=== PATIENT | female | born 1995 | race Native Hawaiian/Other Pacific Islander ===

== ENCOUNTER 2019-04-02 07:07 | Inpatient (IN) | payer OTHER ==
[2019-04-02] MEDS ORDERED: OXYTOCIN 10 UNIT/ML 1 ML VIAL IM PRN (08:15)
[2019-04-02] MEDS ORDERED: CARBOPROST TROMETHAMINE 250 MCG/ML 1 ML AMP IM PRN (08:15)
[2019-04-02] MEDS ORDERED: LIDOCAINE 0.5% (PF) 5 MG/ML (50 ML SDV) SQ PRN (08:15)
[2019-04-02] MEDS ORDERED: TERBUTALINE 1 MG/ML VIAL SQ PRN (08:15)
[2019-04-02] MEDS ORDERED: METHYLERGONOVINE 0.2 MG/ML 1 ML AMP IM PRN (08:15)
[2019-04-02] MEDS ORDERED: OXYTOCIN 30 UNITS/500 ML NS 30 UNIT in SALINE 1 500ML.BAG IV SCH (08:15)
[2019-04-02] MEDS: LACTATED RINGERS 1,000 ML IV SCH ×2 (08:44→10:00)
--- NOTE | 2019-04-02 09:13 | P.HPOB ---
History of Present Illness H&P Date: 04/02/19 Chief Complaint: My water broke this morning. This is a 23-year-old white female 1 para 0 EDC 04/08/2019 at 39 and one sevenths weeks' gestation. Patient states her water broke this morning, clear fluid, at approximate 6:30 AM. She is having mild to moderate uterine contractions at this time. She denies vaginal bleeding. Fetus is been active throughout the . Past medical history is negative. Past surgical history is negative. Current medications vitamins daily. ALLERGIES include penicillin, reaction unknown. Family history is essentially negative. Social history patient has never been a smoker, she is now , father of the baby is present and involved. She denies alcohol or drug use. history is significant for blood type B+, rubella status nonimmune. Urine culture, VDRL testing, HIV testing, hepatitis B surface antigen, gonorrhea and chlamydia cultures, group B strep cultures all negative. One-hour Glucola elevated, 3 hour GTT within normal limits. On exam this is a pleasant white female, she is approximately 280 pounds, 5 foot 3 inches, vital signs are stable and she is afebrile. The general physical exam is within normal limits. Extremities reveal +1 edema. Cervix is 4 cm dilated, 90% effaced, -2 station, vertex presentation, obvious clear fluid on the perineal body. heart rate is consistent with reactive NST. Impression: 39 and one sevenths weeks intrauterine , spontaneous a mniorrhexis, early labor. All signs reassuring. Plan: Epidural may be placed at any time. Continue close maternal and surveillance. Consider oxytocin augmentation pending clinical progress. Anticipate normal spontaneous vaginal delivery. Review of Systems Constitutional: Reports as per HPI Past Medical History Past Medical History: No Reported History History of Any Multi-Drug Resistant Organisms: None Reported Past Surgical History: No Surgical Hx Reported Smoking Status: Never smoker Medications and Allergies Home Medications Medication Instructions Recorded Confirmed Type Thyroid,Pork [[place] Thyroid] 60 mg PO BID 04/02/19 04/02/19 History Allergies Allergy/AdvReac Type Severity Reaction Status Date / Time Penicillins Allergy Unknown Verified 04/02/19 07:36 Childhood Exam Vital Signs Temp Pulse Resp BP 04/02/19 07:18 97.9 F 100 16 157/70 Intake and Output 04/01/19 04/02/1904/02/19 22:59 06:59 14:59 Other: Weight 2783 kg Assessment and Plan Assessment: 39 and one sevenths week intrauterine , spontaneous amniorrhexis, early labor. Plan: Close maternal and surveillance. Consider oxytocin augmentation after epidural was placed pending clinical progress. Anticipate normal spontaneous vaginal delivery. Time with Patient: Less than 30
[2019-04-02 09:33] LABS: Anisocytosis Slight; Basophils % (A) 0 %; Eosinophils % (A) 0 %; HCT 40.1 % (34.0-46.0); HGB 13.1 gm/dL (11.4-16.0); Lymphocytes # (A) 2.5 k/uL (1.0-4.8); Lymphocytes % (A) 16 %; MCH 28.3 pg (25.0-35.0); MCHC 32.6 g/dL (31.0-37.0); MCV 86.7 fL (80.0-100.0); Mean Platelet Volume 9.1; Monocytes # (A) 0.7 k/uL (0-1.0); Monocytes % (A) 4 %; Neutrophils # (A) 12.2 k/uL (1.3-7.7); Neutrophils % (A) 78 %; Platelet Count 246 k/uL (150-450); RBC 4.62 m/uL (3.80-5.40); RDW 16.4 % (11.5-15.5); WBC 15.7 k/uL (3.8-10.6)
[2019-04-02] MEDS ORDERED: SODIUM CHLORIDE 0.9% 100 ML BAG ONE (09:45)
[2019-04-02] MEDS ORDERED: fentaNYL (PF) 50 MCG/ML 5 ML AMP ONE (09:45)
[2019-04-02] MEDS ORDERED: ROPIVACAINE 5MG/ML 20ML VIAL ONE (09:45)
[2019-04-02] MEDS: OXYTOCIN 20 UNITS/1000 ML NS 1,000 ML IV SCH ×2 (12:58→14:26)
[2019-04-02] MEDS ORDERED: WITCH HAZEL 1 EACH MED..PAD TOPICAL PRN (13:23)
[2019-04-02] MEDS ORDERED: ZOLPIDEM 5 MG TAB PO PRN (13:23)
[2019-04-02] MEDS ORDERED: diphenhydrAMINE 50 MG CAP PO PRN (13:23)
[2019-04-02] MEDS ORDERED: BENZOCAINE/MENTHOL SPRAY 1 GM/SPRAY AEROSOL TOPICAL PRN (13:23)
[2019-04-02] MEDS ORDERED: diphenhydrAMINE 25 MG CAP PO PRN (13:23)
[2019-04-02] MEDS ORDERED: HYDROCORTISONE 2.5% RECTAL CREAM 30 GM TUBE RECTAL PRN (13:23)
[2019-04-02] MEDS ORDERED: diphenhydrAMINE ELIXIR 25 MG/10 ML CUP PO PRN (13:23)
[2019-04-02] MEDS ORDERED: LANOLIN CREAM 5 GM TUBE TOPICAL PRN (13:23)
[2019-04-02] MEDS ORDERED: diphenhydrAMINE 50 MG/ML 1 ML VIAL IVP PRN ×2 (13:23)
[2019-04-02] MEDS ORDERED: SIMETHICONE 80 MG CHEWABLE PO PRN (13:23)
[2019-04-02] MEDS ORDERED: MEASLES-MUMPS-RUBELLA VACC/PF 12,500 UNIT/0.5 ML VIAL SQ ONE (13:23)
--- NOTE | 2019-04-02 13:23 | P.PROBDLV ---
Vaginal Delivery Note - . Vaginal Delivery Note: This 23-year-old female 1 para 0 EDC 04/08/2019 at 39-5/7 weeks presented with spontaneous amniorrhexis which occurred at home, clear fluid, at approximately 06 100. Mild uterine contractions followed. was essentially unremarkable, blood type B+, rubella status nonimmune, group B strep cultures negative. Please see my dictated history and physical for details. Patient progressed well through the course of labor and received an epidural per her request. Oxytocin augmentation was started. She became completely dilated at 1241 hrs. and began the second stage of labor at that time. With excellent maternal expulsive efforts the patient easily crowned the . Perineal body was prepped and draped in usual sterile fashion. delivered occiput anterior and restituted accordingly. There was a tight nuchal cord 1 that was not able to be reduced. Patient delivered through the nuchal cord, a liveborn male infant at 1255 hrs. Shoulders delivered without issue. Umbilical cord was doubly clamped and ligated, he was handed to waiting nurses for evaluation where scores of 8 and 9 at one and 5 minutes respectively were given. The placenta delivered spontaneously, it was inspected and noted to be intact with trivascular cord at 1258 hrs. Inspection now of the cervix, vagina, perineum, periurethral, and perirectal areas revealed a second-degree laceration in the midline. This was injected with lidocaine and repaired in the usual fashion using 2-0 undyed Vicryl. Excellent reapproximation was noted. There was also a small right labial laceration that was also repaired in a running locking stitch. Fundus is firm and in the midline, symmetric and 18 week size upon completion of delivery. Infant weighs 7 lbs. 9 oz. or 3415 g. All sponge needle and enhancement counts are correct at the end of the procedure. Total estimated blood loss 300 mL's. Placenta is not sent to pathology, for an unremarkable . Nallely arango will be given. Patient is requesting circumcision for her infant son. Orders are written, and this will likely occur tomorrow morning.
[2019-04-02] MEDS: IBUPROFEN 600 MG TAB PO PRN ×2 (13:32→21:05)
[2019-04-02] MEDS: SENNOSIDES-DOCUSATE SODIUM 1 EACH TAB PO SCH (21:05)
[2019-04-03] MEDS: IBUPROFEN 600 MG TAB PO PRN ×4 (04:11→22:59)
--- NOTE | 2019-04-03 08:20 | P.DS ---
Providers Date of admission: 04/02/19 07:29 Expected date of discharge: 04/03/19 Attending physician: Melina Gonzales Primary care physician: Stated None Hospital Course: This is a 23-year-old white female 1 para 0 EDC 04/08/2019 at 39 and one sevenths weeks' gestation. Patient presented with spontaneous amniorrhexis which occurred at home, clear fluid. was essentially unremarkable, blood type B positive, rubella status nonimmune, group strep cultures negative. Please see my dictated history and physical for details. Patient was admitted, epidural was placed per her request. Oxytocin augmentation she was given. She went on to vaginally deliver a liveborn male infant with scores of 8 and 9 at one and 5 minutes respectively. There was a tight nuchal cord 1 that was reduced on the perineal body, an estimated blood loss of 300 mL and a small second-degree perineal laceration easily repaired. Infant weighed 7 lbs. 9 oz. or 3415 g. Please see my dictated delivery note for details. This morning the patient is doing well. She is voiding, ambulating and passing flatus without difficulty. Vital signs are stable and she is afebrile. Circumcision has been performed on her son. patient is breast-feeding and this appears to be going well. She is judged to be in very good condition for discharge home. Patient will follow-up with me in the office in 6 weeks. I have reminded her no intercourse, tampons or douching. She will use [id number] ibuprofen, or Advil or Aleve as instructed by the bottle for pain relief. She will continue taking her vitamin daily. I've asked her to call with any fevers shakes or chills, foul smelling or copious lochia, with the passage of large blood clots, with any pain not alleviated by [id number] products, or indeed with any concerns. We have briefly reviewed options for contraception and we will discuss this further in the office. will follow-up with chronic condition nurse as recommended. Breast pump is provided to the patient per her request. Patient Condition at Discharge: Good Plan - Discharge Summary Discharge Rx Participant: No New Discharge Prescriptions: No Action Thyroid,Pork [[place] Thyroid] 60 mg PO BID Discharge Medication List Thyroid,Pork [[place] Thyroid] 60 mg PO BID 04/02/19 [History] Follow up Appointment(s)/Referral(s): Melina Gonzales MD [STAFF PHYSICIAN] - 6 Weeks Discharge Disposition: HOME SELF-CARE
[2019-04-03] MEDS: SENNOSIDES-DOCUSATE SODIUM 1 EACH TAB PO SCH ×2 (11:16→20:07)
[2019-04-03] MEDS: ACETAMINOPHEN TAB 325 MG TAB PO PRN (20:08)
[2019-04-04] MEDS: ACETAMINOPHEN TAB 325 MG TAB PO PRN (03:13)
[2019-04-04] MEDS: IBUPROFEN 600 MG TAB PO PRN (07:37)
[2019-04-04] MEDS: SENNOSIDES-DOCUSATE SODIUM 1 EACH TAB PO SCH (07:38)
[2019-04-04 08:02] VITALS: BP 124/73; PULSE 98; RESP 16; TEMP 98.4
== END 2019-04-04 10:35 | disposition home or self-care (01) | DRG 807 ==
LOC: FBPOP 07:07 → 4FBP 07:29
PROVIDERS: ADMIT Obstetrics & Gynecology; ATTEND Obstetrics & Gynecology
PROC: 10E0XZZ Delivery of Products of Conception, External Approach (ICD-10-PCS; principal; 2019-04-02)
PROC: 0KQM0ZZ Repair Perineum Muscle, Open Approach (ICD-10-PCS; 2019-04-02)
PROC: 0HQ9XZZ Repair Perineum Skin, External Approach (ICD-10-PCS; 2019-04-02)
PROC: 00HU33Z Insertion of Infusion Device into Spinal Canal, Percutaneous Approach (ICD-10-PCS; 2019-04-02)
PROC: 3E0R3BZ Introduction of Anesthetic Agent into Spinal Canal, Percutaneous Approach (ICD-10-PCS; 2019-04-02)
DX: O69.1XX0 Labor and delivery complicated by cord around neck, with compression, not applicable or unspecified (principal); Z37.0 Single live birth; O70.1 Second degree perineal laceration during delivery; O70.0 First degree perineal laceration during delivery; O99.62 Diseases of the digestive system complicating childbirth; K21.9 Gastro-esophageal reflux disease without esophagitis; O99.284 Endocrine, nutritional and metabolic diseases complicating childbirth; E07.9 Disorder of thyroid, unspecified; Z3A.39 39 weeks gestation of pregnancy; Z79.899 Other long term (current) drug therapy
CPT/HCPCS: 59025; 84112; 85025; 86850; 86900; 86901; 90707; 99213

== ENCOUNTER 2020-01-28 01:49 | Emergency (ER) | payer OTHER ==
[2020-01-28 02:06] VITALS: BP 158/103; PULSE 89; RESP 18; TEMP 98.1
[2020-01-28] MEDS ORDERED: ALPRAZolam 0.5 MG TAB PO STA (02:07)
--- NOTE | 2020-01-28 02:25 | ED ---
General Adult HPI - General Chief complaint: Anxiety Stated complaint: Tingling sensation left side Time Seen by Provider: 01/28/20 02:07 Source: patient Mode of arrival: ambulatory Limitations: no limitations - History of Present Illness Initial comments: Dictation was produced using [employer] dictation software. please excuse any grammatical, word or spelling errors. Chief Complaint: 24-year-old female presents with anxiety. History of Present Illness: 24-year-old female she presents with racing thoughts, rapid breathing, intermittent tingling to the hands and fingers. States that she didn't really stressed out recently because he tried to find a new job. She states that she is preoccupied with all of her tests at home. She also worried about her fianc who was went to [facility]. Today she felt like she became really anxious. She and breathing fast to the point were she experience some tingling to her left medial arm. She states that it arises in her left elbow and radiates to her left fifth and fourth digit. She works at [employer]. She presents that she uses her upper extremities a lot. The ROS documented in this emergency department record has been reviewed and confirmed by me. Those systems with pertinent positive or negative responses have been documented in the HPI. All other systems are other negative and/or noncontributory. PHYSICAL EXAM: General Impression: Alert and oriented x3, not in acute distress HEENT: Normocephalic atraumatic, extra-ocular movements intact, pupils equal and reactive to light bilaterally, mucous membranes moist. Cardiovascular: Heart regular rate and rhythm, S1&S2 audible, no murmurs, rubs or gallops Chest: Lungs clear to auscultation bilaterally, no rhonchi, no wheeze, no rales Abdomen: Bowel sounds present, abdomen soft, non-tender, non-distended, no organomegaly Musculoskeletal: Pulses present and equal in all extremities, no peripheral edema Motor: no focal deficits noted Neurological: CN II-XII grossly intact, no focal motor or sensory deficits noted Skin: Intact with no visualized rashes Psych: Normal affect and mood ED course: 24-year-old female click or presentation consistent with anxiety reaction. Signs upon arrival are within acceptable limits. Patient denies being . Her last menstrual period was 9 days ago. Physical exam is benign. Patient given an anxiolytic. She is given referral to outpatient physician Dr. Allen who can manage her anxiety on outpatient basis. Patient is set up an agreeable plan. Reassurance provided. - Related Data Home Medications Medication Instructions Recorded Confirmed Thyroid,Pork [[place] Thyroid] 60 mg PO BID 04/02/19 04/02/19 Allergies Allergy/AdvReac Type Severity Reaction Status Date / Time Penicillins Allergy Unknown Verified 01/28/20 02:06 Childhood Review of Systems ROS Statement: Those systems with pertinent positive or pertinent negative responses have been documented in the HPI. ROS Other: All systems not noted in ROS Statement are negative. Past Medical History Past Medical History: No Reported History History of Any Multi-Drug Resistant Organisms: None Reported Past Surgical History: No Surgical Hx Reported Past Psychological History: No Psychological Hx Reported Smoking Status: Never smoker Past Alcohol Use History: Occasional Past Drug Use History: Marijuana General Exam Limitations: no limitations Course Vital Signs 01/28/20 02:00 Temperature 98.1 F Pulse Rate 89 Respiratory 18 Rate Blood Pressure 158/103 O2 Sat by Pulse 98 Oximetry Disposition Clinical Impression: Acute anxiety Disposition: HOME SELF-CARE Instructions (If sedation given, give patient instructions): Generalized Anxiety Disorder (ED) Is patient prescribed a controlled substance at d/c from ED?: No Referrals: Yvon Allen MD [REFERRING] - 1-2 days Time of Disposition: 02:25
== END 2020-01-28 02:36 | disposition home or self-care (01) ==
LOC: EC 01:49
DX: F41.9 Anxiety disorder, unspecified (principal); Z88.0 Allergy status to penicillin
CPT/HCPCS: 99283

== ENCOUNTER 2020-12-27 19:23 | Emergency (ER) | payer OTHER ==
[2020-12-27] MEDS ORDERED: KETOROLAC 15 MG/ML 1 ML VIAL IM STA (20:07)
[2020-12-27] MEDS ORDERED: SODIUM CHLORIDE 0.9% 1,000 ML IV STA (20:07)
[2020-12-27] MEDS ORDERED: LORazepam 1 MG TAB PO STA (20:07)
[2020-12-27 20:34] LABS: Basophils % (A) 0 %; Eosinophils % (A) 0 %; HCT 44.2 % (34.0-46.0); HGB 14.5 gm/dL (11.4-16.0); Lymphocytes # (A) 2.7 k/uL (1.0-4.8); Lymphocytes % (A) 23 %; MCH 28.3 pg (25.0-35.0); MCHC 32.7 g/dL (31.0-37.0); MCV 86.5 fL (80.0-100.0); Mean Platelet Volume 7.2; Monocytes # (A) 0.6 k/uL (0-1.0); Monocytes % (A) 5 %; Neutrophils # (A) 7.9 k/uL (1.3-7.7); Neutrophils % (A) 69 %; Platelet Count 356 k/uL (150-450); RBC 5.11 m/uL (3.80-5.40); RDW 13.4 % (11.5-15.5); WBC 11.5 k/uL (3.8-10.6)
[2020-12-27 20:38] LABS: ALT 19 U/L (4-34); AST 21 U/L (14-36); African American GFR (CKD) >90 (>60 ml/min/1.73 sqM); Albumin 4.4 g/dL (3.5-5.0); Alkaline Phosphatase 71 U/L (38-126); Anion Gap 9 mmol/L; Blood Urea Nitrogen 12 mg/dL (7-17); Calcium 10.2 mg/dL (8.4-10.2); Carbon Dioxide 25 mmol/L (22-30); Chloride 105 mmol/L (98-107); Glucose 147 mg/dL (74-99); Magnesium 2.1 mg/dL (1.6-2.3); Non-African American GFR(CKD) >90 (>60 ml/min/1.73 sqM); Sodium 139 mmol/L (137-145); Total Bilirubin 0.3 mg/dL (0.2-1.3); Total Protein 7.7 g/dL (6.3-8.2)
[2020-12-27 20:45] LABS: INR 0.9 (<1.2); Partial Thromboplastin Time 21.2 sec (22.0-30.0); Prothrombin Time 9.7 sec (9.0-12.0)
--- NOTE | 2020-12-27 20:47 | XR ---
EXAMINATION TYPE: XR chest 2V DATE OF EXAM: 12/27/2020 COMPARISON: 10/13/2013. HISTORY: Chest pain. TECHNIQUE: Frontal and lateral views of the chest are obtained. FINDINGS: There is no focal air space opacity, pleural effusion, or pneumothorax seen. The cardiac silhouette size is within normal limits. The osseous structures are intact. IMPRESSION: No acute cardiopulmonary process.
--- NOTE | 2020-12-27 21:06 | ED ---
General Adult HPI - General Source: patient Mode of arrival: ambulatory Limitations: no limitations <Barbara Sol - Last Filed: 12/28/20 01:10> <Tammie Cabrera - Last Filed: 12/28/20 14:49> - General Chief complaint: Chest Pain Stated complaint: chest pain Time Seen by Provider: 12/27/20 19:59 - History of Present Illness Initial comments: 25 year-old female patient presents to the emergency department for evaluation of Chest pain, jaw pain, and left arm pain. Denies shortness of breath, nausea, or sweats. States pain initially started when she picked up something heavy. Denies any fever, chills, or cough. States she does have history of anxiety and panic attacks. Denies feeling anxious or having an inciting event cause her symptoms. She denies abdominal pain, constipation, or diarrhea. Patient denies any recent rash, back pain, numbness, tingling, dizziness, weakness, hematuria, dysuria, urinary urgency, urinary frequency, headache, visual changes, or any other complaints. Denies chance of . (Barbara Sol) - Related Data Home Medications Medication Instructions Recorded Confirmed Thyroid,Pork [[place] Thyroid] 60 mg PO BID 04/02/19 04/02/19 Allergies Allergy/AdvReac Type Severity Reaction Status Date / Time Penicillins Allergy Unknown Verified 01/28/20 02:06 Childhood Review of Systems ROS Other: All systems not noted in ROS Statement are negative. <Barbara Sol - Last Filed: 12/28/20 01:10> ROS Other: All systems not noted in ROS Statement are negative. <Tammie Cabrera - Last Filed: 12/28/20 14:49> ROS Statement: Those systems with pertinent positive or pertinent negative responses have been documented in the HPI. Past Medical History Past Medical History: No Reported History History of Any Multi-Drug Resistant Organisms: None Reported Past Surgical History: No Surgical Hx Reported Past Psychological History: No Psychological Hx Reported Smoking Status: Never smoker Past Alcohol Use History: Occasional Past Drug Use History: Marijuana <Barbara Sol - Last Filed: 12/28/20 01:10> General Exam Limitations: no limitations General appearance: alert, in no apparent distress, other (This is a well- developed, well-nourished adult female patient in no acute distress. Vital signs upon presentation are temperature 98.2F, pulse 80, respirations 18, blood pressure 177/109, pulse ox 99% on room air.) Eye exam: Present: normal appearance, PERRL, EOMI. Absent: scleral icterus, conjunctival injection, periorbital swelling ENT exam: Present: normal exam, normal oropharynx, mucous membranes moist Respiratory exam: Present: normal lung sounds bilaterally. Absent: respiratory distress, wheezes, rales, rhonchi, stridor, chest wall tenderness Cardiovascular Exam: Present: regular rate, normal rhythm, normal heart sounds. Absent: systolic murmur, diastolic murmur, rubs, gallop, clicks GI/Abdominal exam: Present: soft, normal bowel sounds. Absent: distended, tenderness, guarding, rebound, rigid Neurological exam: Present: alert, oriented X3, CN II-XII intact Psychiatric exam: Present: normal affect, normal mood Skin exam: Present: warm, dry, intact, normal color. Absent: rash <Barbara Sol - Last Filed: 12/28/20 01:10> Course Vital Signs 12/27/20 12/27/20 12/27/20 19:26 19:59 21:29 Temperature 98.2 F 97 F L Pulse Rate 80 76 Respiratory 18 22 18 Rate Blood Pressure 177/109 126/76 O2 Sat by Pulse 99 98 Oximetry EKG Findings - EKG Comments: EKG Findings:: EKG obtained at 1943 shows sinus rhythm with frequent PVCs. Ventricular rate 76, [place] interval 176, QRS duration 76, QT 384, QTC 432. No evidence of ST elevation or depression. <Barbara Sol - Last Filed: 12/28/20 01:10> Medical Decision Making - Lab Data Result diagrams: 12/27/20 20:15 12/27/20 20:15 - Radiology Data Radiology results: report reviewed, image reviewed <Barbara Sol - Last Filed: 12/28/20 01:10> - Lab Data Result diagrams: 12/27/20 20:15 12/27/20 20:15 <Tammie Cabrera - Last Filed: 12/28/20 14:49> - Medical Decision Making 25 year-old female patient presents to the emergency department today for evalua tion of chest pain, left jaw pain, and left arm pain. Physical examination was unremarkable. Pain was not reproducible palpation. Lungs are clear to auscultation with good air movement. Abdomen soft and nontender. EKG was obtained and showed sinus rhythm with frequent premature ventricular cont ractions. Labs reviewed and did reveal elevated glucose, mildly elevated white blood cell count at 11.5. Chest x-ray was obtained and was negative. Upon reevaluation patient does report improvement of symptoms. States that she feels this may have been a panic attack. We did discuss the findings of the PVCs on her EKG, she is instructed to follow-up with her primary care physician or cardiology for further evaluation. She is instructed to discuss Holter monitoring. Return parameters were discussed in detail. She verbalizes understanding and agrees with this plan. Case discussed with my attending Dr. Cabrera. (Barbara Sol) I was available for consultation in the emergency department. The history and physical exam were done by the midlevel provider. I was consulted for this patients care. I reviewed the case with the midlevel provider and based on thei r presentation of the patient, I agree with the assessment, medical decision making and plan of care as documented. Chart was dictated using [employer] dictation software. Attempts were made to correct any dictation errors however some typographical errors may persist. Patient was seen during a national state of emergency due to the Covid-19 pandemic. (Tammie Cabrera) - Lab Data Lab Results 12/27/20 12/27/20 12/27/20 Range/Units 20:15 20:15 20:15 WBC 11.5 H (3.8-10.6) k/uL RBC 5.11 (3.80-5.40) m/uL Hgb 14.5 (11.4-16.0) gm/dL Hct 44.2 (34.0-46.0) % MCV 86.5 (80.0-100.0) fL MCH 28.3 (25.0-35.0) pg MCHC 32.7 (31.0-37.0) g/dL RDW 13.4 (11.5-15.5) % Plt Count 356 (150-450) k/uL MPV 7.2 Neutrophils % 69 % Lymphocytes % 23 % Monocytes % 5 % Eosinophils % 0 % Basophils % 0 % Neutrophils # 7.9 H (1.3-7.7) k/uL Lymphocytes # 2.7 (1.0-4.8) k/uL Monocytes # 0.6 (0-1.0) k/uL Eosinophils # 0.0 (0-0.7) k/uL Basophils # 0.0 (0-0.2) k/uL PT 9.7 (9.0-12.0) sec INR 0.9 (<1.2) APTT 21.2 L (22.0-30.0) sec Sodium 139 (137-145) mmol/L Potassium 4.0 (3.5-5.1) mmol/L Chloride 105 (98-107) mmol/L Carbon Dioxide 25 (22-30) mmol/L Anion Gap 9 mmol/L BUN 12 (7-17) mg/dL Creatinine 0.72 (0.52-1.04) mg/dL Est GFR (CKD-EPI)AfAm >90 (>60 ml/min/1.73 sqM) Est GFR (CKD-EPI)NonAf >90 (>60 ml/min/1.73 sqM) Glucose 147 H (74-99) mg/dL Calcium 10.2 (8.4-10.2) mg/dL Magnesium 2.1 (1.6-2.3) mg/dL Total Bilirubin 0.3 (0.2-1.3) mg/dL AST 21 (14-36) U/L ALT 19 (4-34) U/L Alkaline Phosphatase 71 (38-126) U/L Troponin I (0.000-0.034) ng/mL Total Protein 7.7 (6.3-8.2) g/dL Albumin 4.4 (3.5-5.0) g/dL 12/27/20 Range/Units 20:15 WBC (3.8-10.6) k/uL RBC (3.80-5.40) m/uL Hgb (11.4-16.0) gm/dL Hct (34.0-46.0) % MCV (80.0-100.0) fL MCH (25.0-35.0) pg MCHC (31.0-37.0) g/dL RDW (11.5-15.5) % Plt Count (150-450) k/uL MPV Neutrophils % % Lymphocytes % % Monocytes % % Eosinophils % % Basophils % % Neutrophils # (1.3-7.7) k/uL Lymphocytes # (1.0-4.8) k/uL Monocytes # (0-1.0) k/uL Eosinophils # (0-0.7) k/uL Basophils # (0-0.2) k/uL PT (9.0-12.0) sec INR (<1.2) APTT (22.0-30.0) sec Sodium (137-145) mmol/L Potassium (3.5-5.1) mmol/L Chloride (98-107) mmol/L Carbon Dioxide (22-30) mmol/L Anion Gap mmol/L BUN (7-17) mg/dL Creatinine (0.52-1.04) mg/dL Est GFR (CKD-EPI)AfAm (>60 ml/min/1.73 sqM) Est GFR (CKD-EPI)NonAf (>60 ml/min/1.73 sqM) Glucose (74-99) mg/dL Calcium (8.4-10.2) mg/dL Magnesium (1.6-2.3) mg/dL Total Bilirubin (0.2-1.3) mg/dL AST (14-36) U/L ALT (4-34) U/L Alkaline Phosphatase (38-126) U/L Troponin I <0.012 (0.000-0.034) ng/mL Total Protein (6.3-8.2) g/dL Albumin (3.5-5.0) g/dL - Radiology Data 2 view xray of the chest is obtained. Report was reviewed in its entirety. Impression by Dr. Villanueva shows no acute cardiopulmonary process. (Barbara Sol) Disposition Is patient prescribed a controlled substance at d/c from ED?: No Time of Disposition: 21:06 <Barbara Sol - Last Filed: 12/28/20 01:10> <Tammie Cabrera - Last Filed: 12/28/20 14:49> Clinical Impression: Chest pain, Frequent PVCs Disposition: HOME SELF-CARE Condition: Good Instructions (If sedation given, give patient instructions): Chest Pain (ED), Premature Ventricular Contractions (ED) Additional Instructions: Follow up with your primary care physician or solder making laborer for further evaluation as soon as possible. Return to the emergency department for further evaluation for any new, worsening, or concerning symptoms. Referrals: Jose Middleton [STAFF PHYSICIAN] - 1-2 days Sedrick Novak MD [STAFF PHYSICIAN] - 1-2 days
[2020-12-27 21:30] VITALS: BP 126/76; PULSE 76; RESP 18; TEMP 97
== END 2020-12-27 21:29 | disposition home or self-care (01) ==
LOC: EC 19:23
DX: I49.3 Ventricular premature depolarization (principal); R73.9 Hyperglycemia, unspecified; D72.829 Elevated white blood cell count, unspecified; R07.9 Chest pain, unspecified; R68.84 Jaw pain; M79.602 Pain in left arm; Z79.899 Other long term (current) drug therapy; Z88.0 Allergy status to penicillin
CPT/HCPCS: 36415; 93005; 80053; 83735; 84484; 85025; 85610; 85730; 71046; 99285; 96360; 96372; J1885

== ENCOUNTER 2021-02-16 16:23 | Emergency (ER) | payer OTHER ==
--- NOTE | 2021-02-16 18:26 | ED ---
General Adult HPI <Roberto Fishman - Last Filed: 02/16/21 18:23> <Anais Baeza - Last Filed: 02/16/21 21:59> - General Stated complaint: Covid+, SOB - History of Present Illness Initial comments: 25-year-old female presented emergency Department with a chief complaint of cough and shortness of breath. Patient tested positive and 02/13/21 for Covid. Patient reports myalgias and fatigue along with rhinorrhea but denies any otalgia or sore throat. She is not a current smoker. (Roberto Fishman) Denies leg swelling hemoptysis calf pain pain with deep inspiration, chest pressure, jaw or arm pain. Patient does not appear toxic nor in distress on arrival. (Anais Baeza) - Related Data Home Medications Medication Instructions Recorded Confirmed Thyroid,Pork [[place] Thyroid] 60 mg PO BID 04/02/19 04/02/19 Previous Rx's Medication Instructions Recorded Azithromycin [Zithromax Z-pack (6 0 mg PO DIRECTED #6 tab 02/16/21 tabs)] Allergies Allergy/AdvReac Type Severity Reaction Status Date / Time Penicillins Allergy Unknown Verified 02/16/21 18:24 Childhood Review of Systems ROS Other: All systems not noted in ROS Statement are negative. <Roberto Fishman - Last Filed: 02/16/21 18:23> ROS Other: All systems not noted in ROS Statement are negative. <Anais Baeza - Last Filed: 02/16/21 21:59> ROS Statement: Those systems with pertinent positive or pertinent negative responses have been documented in the HPI. Past Medical History Past Medical History: No Reported History History of Any Multi-Drug Resistant Organisms: None Reported Past Surgical History: No Surgical Hx Reported Past Psychological History: No Psychological Hx Reported Smoking Status: Never smoker Past Alcohol Use History: Occasional Past Drug Use History: Marijuana <Roberto Fishman - Last Filed: 02/16/21 18:23> General Exam <Anais Baeza - Last Filed: 02/16/21 21:59> - General Exam Comments Initial Comments: General: The patient is awake and alert, in no distress, and does not appear acutely ill. Eye: +3 mm pupils are equal, round and reactive to light, extra-ocular movements are intact. No nystagmus. There is normal conjunctiva bilaterally. No signs of icterus. Ears, nose, mouth and throat: There are moist mucous membranes and no oral lesions. Neck: The neck is supple, there is no tenderness or JVD. Cardiovascular: There is a regular rate and rhythm. No murmur, rub or gallop is appreciated. Respiratory: Lungs are clear to auscultation, respirations are non-labored, breath sounds are equal. No wheezes, stridor, rales, or rhonchi. No retractions or abdominal breathing occasional cough. Musculoskeletal: Normal ROM, no tenderness. Strength 5/5. Sensation intact. Radial and DP pulses equal bilaterally 2+. Neurological: A&O x 3. CN II-XII intact grossly, There are no obvious motor or sensory deficits. Coordination appears grossly intact. Speech is normal. Skin: Skin is warm and dry and no rashes or lesions are noted. No calf pain or tenderness. Psychiatric: Cooperative, appropriate mood & affect, normal judgment. (Anais Baeza) Course Vital Signs 02/16/21 02/16/21 18:21 20:01 Temperature 102.8 F H 99.6 F Pulse Rate 107 H 89 Respiratory 22 18 Rate Blood Pressure 97/62 97/63 O2 Sat by Pulse 96 99 Oximetry Medical Decision Making - Lab Data Result diagrams: 02/16/21 20:02 02/16/21 20:02 <Anais Baeza - Last Filed: 02/16/21 21:59> - Medical Decision Making thrombocytopenia, consistent with viral syndrome. covid +. patient cxr possible pneuonia. pt has no WBC increase. not immune compromised. no peripheral findings concerning for DVT. no pleuritc chest pain or hypoxic. pt meet criteria for monoclonal antibodies, discussed risk vs benefit and patient would like to proceed. patient did not have a reaction. patient discharged appearing well. Attending agreeable to care plan. (Anais Baeza) - Lab Data Lab Results 02/16/21 02/16/21 02/16/21 Range/Units 20:02 20:02 20:02 WBC 4.2 (3.8-10.6) k/uL RBC 5.31 (3.80-5.40) m/uL Hgb 16.0 (11.4-16.0) gm/dL Hct 45.7 (34.0-46.0) % MCV 86.2 (80.0-100.0) fL MCH 30.1 (25.0-35.0) pg MCHC 34.9 (31.0-37.0) g/dL RDW 13.1 (11.5-15.5) % Plt Count 136 L D (150-450) k/uL MPV 10.9 Neutrophils % 52 % Lymphocytes % 38 % Monocytes % 6 % Eosinophils % 0 % Basophils % 1 % Neutrophils # 2.2 (1.3-7.7) k/uL Lymphocytes # 1.6 (1.0-4.8) k/uL Monocytes # 0.3 (0-1.0) k/uL Eosinophils # 0.0 (0-0.7) k/uL Basophils # 0.0 (0-0.2) k/uL Sodium 137 (137-145) mmol/L Potassium 4.3 (3.5-5.1) mmol/L Chloride 103 (98-107) mmol/L Carbon Dioxide 25 (22-30) mmol/L Anion Gap 9 mmol/L BUN 13 (7-17) mg/dL Creatinine 0.78 (0.52-1.04) mg/dL Est GFR (CKD-EPI)AfAm >90 (>60 ml/min/1.73 sqM) Est GFR (CKD-EPI)NonAf >90 (>60 ml/min/1.73 sqM) Glucose 106 H (74-99) mg/dL Plasma Lactic Acid Smith 0.9 (0.7-2.0) mmol/L Calcium 8.6 (8.4-10.2) mg/dL Total Bilirubin 0.4 (0.2-1.3) mg/dL AST 47 H (14-36) U/L ALT 33 (4-34) U/L Alkaline Phosphatase 68 (38-126) U/L Total Protein 7.0 (6.3-8.2) g/dL Albumin 4.0 (3.5-5.0) g/dL Disposition <Roberto Fishman - Last Filed: 02/16/21 18:23> Is patient prescribed a controlled substance at d/c from ED?: No Time of Disposition: 20:41 <Anais Baeza - Last Filed: 02/16/21 21:59> Clinical Impression: COVID-19, Dyspnea, Body aches, Fever, Fatigue, Pneumonia due to COVID-19 virus Disposition: HOME SELF-CARE Condition: Good Instructions (If sedation given, give patient instructions): Coronavirus Disease 2019 (COVID-19) Additional Instructions: Please use medication as discussed. Please follow-up with family doctor in the next 2 days. Please return to emergency room if the symptoms increase or worsen or for any other concerns. Prescriptions: Azithromycin [Zithromax Z-pack (6 tabs)] 0 mg PO DIRECTED #6 tab Referrals: Yvon Allen MD [Primary Care Provider] - 1-2 days
--- NOTE | 2021-02-16 18:48 | XR ---
EXAMINATION TYPE: XR chest 2V DATE OF EXAM: 02/16/2021 COMPARISON: NONE TECHNIQUE: PA and lateral views submitted. HISTORY: Cough FINDINGS: Diffuse interstitial pattern with patchy upper lobe infiltrates noted. No pleural effusion or pneumot horax. Heart size normal. Osseous structures stable. IMPRESSION: 1. Correlate for interstitial pneumonitis with superimposed upper lobe areas of more consolidative pn eumonia.
[2021-02-16] MEDS ORDERED: ACETAMINOPHEN TAB 325 MG TAB PO STA (19:40)
[2021-02-16] MEDS ORDERED: KETOROLAC 15 MG/ML 1 ML VIAL IVP STA (19:48)
[2021-02-16 20:10] LABS: Basophils % (A) 1 %; Eosinophils % (A) 0 %; HCT 45.7 % (34.0-46.0); Lymphocytes # (A) 1.6 k/uL (1.0-4.8); Lymphocytes % (A) 38 %; MCH 30.1 pg (25.0-35.0); MCHC 34.9 g/dL (31.0-37.0); MCV 86.2 fL (80.0-100.0); Mean Platelet Volume 10.9; Monocytes # (A) 0.3 k/uL (0-1.0); Monocytes % (A) 6 %; Neutrophils # (A) 2.2 k/uL (1.3-7.7); Neutrophils % (A) 52 %; RBC 5.31 m/uL (3.80-5.40); RDW 13.1 % (11.5-15.5); WBC 4.2 k/uL (3.8-10.6)
[2021-02-16 20:14] LABS: Platelet Count 136 k/uL (150-450)
[2021-02-16 20:20] LABS: ALT 33 U/L (4-34); AST 47 U/L (14-36); African American GFR (CKD) >90 (>60 ml/min/1.73 sqM); Alkaline Phosphatase 68 U/L (38-126); Anion Gap 9 mmol/L; Blood Urea Nitrogen 13 mg/dL (7-17); Calcium 8.6 mg/dL (8.4-10.2); Carbon Dioxide 25 mmol/L (22-30); Chloride 103 mmol/L (98-107); Glucose 106 mg/dL (74-99); Non-African American GFR(CKD) >90 (>60 ml/min/1.73 sqM); Potassium 4.3 mmol/L (3.5-5.1); Sodium 137 mmol/L (137-145); Total Bilirubin 0.4 mg/dL (0.2-1.3)
[2021-02-16] MEDS ORDERED: BAMLANIVIMAB (EUA) 700 MG, ETESEVIMAB (EUA) 1,400 MG in SODIUM CHLORIDE 0.9% 50 ML IVPB ONE (20:30)
[2021-02-16] MEDS ORDERED: SODIUM CHLORIDE 0.9% 50 ML IVPB ONE (21:30)
[2021-02-16 21:57] VITALS: BP 111/55; PULSE 88; RESP 17; TEMP 97.9
== END 2021-02-16 22:03 | disposition home or self-care (01) ==
LOC: EC 16:23
DX: U07.1 COVID-19 (principal); J12.82 Pneumonia due to coronavirus disease 2019; D69.6 Thrombocytopenia, unspecified; Z79.890 Hormone replacement therapy; Z88.0 Allergy status to penicillin
CPT/HCPCS: 36415; 80053; 83605; 85025; 71046; 99285; 96365; 96375; J1885; Q0245

== ENCOUNTER 2021-04-01 09:05 | Emergency (ER) | payer OTHER ==
[2021-04-01 09:23] VITALS: TEMP 98
[2021-04-01] MEDS ORDERED: SODIUM CHLORIDE 0.9% 500 ML 500 ML IV STA (09:48)
[2021-04-01] MEDS ORDERED: LORazepam 2 MG/ML INJ IV STA (09:49)
[2021-04-01 10:04] LABS: Basophils % (A) 0 %; Eosinophils # (A) 0.2 k/uL (0-0.7); Eosinophils % (A) 2 %; HCT 43.7 % (34.0-46.0); HGB 15.3 gm/dL (11.4-16.0); Lymphocytes # (A) 3.4 k/uL (1.0-4.8); Lymphocytes % (A) 33 %; MCH 30.6 pg (25.0-35.0); MCHC 35.1 g/dL (31.0-37.0); MCV 87.1 fL (80.0-100.0); Mean Platelet Volume 9.1; Monocytes # (A) 0.5 k/uL (0-1.0); Monocytes % (A) 4 %; Neutrophils # (A) 6.1 k/uL (1.3-7.7); Neutrophils % (A) 59 %; Platelet Count 265 k/uL (150-450); RBC 5.01 m/uL (3.80-5.40); RDW 14.3 % (11.5-15.5); WBC 10.4 k/uL (3.8-10.6)
--- NOTE | 2021-04-01 10:22 | ED ---
General Adult HPI - General Chief complaint: Shortness of Breath Stated complaint: SOB Time Seen by Provider: 04/01/21 09:29 Source: patient, RN notes reviewed Mode of arrival: ambulatory Limitations: no limitations - History of Present Illness Initial comments: 25-year-old female presents emergency Department with chief complaint of shortness of breath. Patient states that she woke up feeling this way. She had this happen the past. She states she feels numbness and tingling all over. She denies any history of anxiety. Patient did have covid Approximate 2 months ago. Patient was seen by pediatric acute care unit nurse had a workup which was negative on her pr ior event of the symptoms. Denies any medications no control no history of PE or DVT no leg pain or leg swelling. - Related Data Home Medications Medication Instructions Recorded Confirmed No Known Home Medications 04/01/21 04/01/21 Allergies Allergy/AdvReac Type Severity Reaction Status Date / Time Penicillins Allergy Unknown Verified 04/01/21 11:34 Childhood Review of Systems ROS Statement: Those systems with pertinent positive or pertinent negative responses have been documented in the HPI. ROS Other: All systems not noted in ROS Statement are negative. Past Medical History Past Medical History: No Reported History Additional Past Medical History / Comment(s): covid 02/13/21 History of Any Multi-Drug Resistant Organisms: None Reported Past Surgical History: No Surgical Hx Reported Past Psychological History: No Psychological Hx Reported Smoking Status: Current some day smoker Past Alcohol Use History: Occasional Past Drug Use History: Marijuana General Exam Limitations: no limitations General appearance: alert, in no apparent distress, anxious Head exam: Present: atraumatic, normocephalic, normal inspection Eye exam: Present: normal appearance, PERRL, EOMI. Absent: scleral icterus, conjunctival injection, periorbital swelling Neck exam: Present: normal inspection, full ROM. Absent: tenderness, meningismus, lymphadenopathy Respiratory exam: Present: normal lung sounds bilaterally. Absent: respiratory distress, wheezes, rales, rhonchi, stridor Cardiovascular Exam: Present: normal rhythm, tachycardia, normal heart sounds. Absent: systolic murmur, diastolic murmur, rubs, gallop, clicks GI/Abdominal exam: Present: soft, normal bowel sounds. Absent: distended, tenderness, guarding, rebound, rigid Back exam: Absent: CVA tenderness (R), CVA tenderness (L) Neurological exam: Present: alert Skin exam: Present: warm, dry, intact, normal color. Absent: rash Course Vital Signs 04/01/21 04/01/21 04/01/21 09:20 10:55 11:17 Temperature 98 F Pulse Rate 129 H 96 93 Respiratory 18 20 16 Rate Blood Pressure 150/84 143/91 145/91 O2 Sat by Pulse 100 100 100 Oximetry EKG Findings - EKG Comments: EKG Findings:: EKG performed at 9:34 sinus tachycardia rate of 115 OH 154 QRS 86 QT/QTC 326/450 - EKG Results: EKG: interpreted by CHRIS Medical Decision Making - Medical Decision Making 25-year-old presented for shortness of breath. Workup is negative at this time. Most likely related to anxiety as she is very anxious upon arrival symptoms are improved. Patient will be discharged stable condition. - Lab Data Result diagrams: 04/01/21 09:48 04/01/21 09:48 Lab Results 04/01/21 04/01/21 04/01/21 Range/Units 09:48 09:48 09:48 WBC 10.4 (3.8-10.6) k/uL RBC 5.01 (3.80-5.40) m/uL Hgb 15.3 (11.4-16.0) gm/dL Hct 43.7 (34.0-46.0) % MCV 87.1 (80.0-100.0) fL MCH 30.6 (25.0-35.0) pg MCHC 35.1 (31.0-37.0) g/dL RDW 14.3 (11.5-15.5) % Plt Count 265 (150-450) k/uL MPV 9.1 Neutrophils % 59 % Lymphocytes % 33 % Monocytes % 4 % Eosinophils % 2 % Basophils % 0 % Neutrophils # 6.1 (1.3-7.7) k/uL Lymphocytes # 3.4 (1.0-4.8) k/uL Monocytes # 0.5 (0-1.0) k/uL Eosinophils # 0.2 (0-0.7) k/uL Basophils # 0.0 (0-0.2) k/uL PT 10.1 (9.0-12.0) sec INR 0.9 (<1.2) APTT 20.5 L (22.0-30.0) sec D-Dimer <0.17 (<0.60) mg/L FEU Sodium 138 (137-145) mmol/L Potassium 3.6 (3.5-5.1) mmol/L Chloride 106 (98-107) mmol/L Carbon Dioxide 17 L (22-30) mmol/L Anion Gap 15 mmol/L BUN 11 (7-17) mg/dL Creatinine 0.80 (0.52-1.04) mg/dL Est GFR (CKD-EPI)AfAm >90 (>60 ml/min/1.73 sqM) Est GFR (CKD-EPI)NonAf >90 (>60 ml/min/1.73 sqM) Glucose 109 H (74-99) mg/dL Calcium 10.4 H (8.4-10.2) mg/dL Total Bilirubin 0.8 (0.2-1.3) mg/dL AST 26 (14-36) U/L ALT 19 (4-34) U/L Alkaline Phosphatase 73 (38-126) U/L Troponin I (0.000-0.034) ng/mL Total Protein 7.7 (6.3-8.2) g/dL Albumin 4.9 (3.5-5.0) g/dL 04/01/21 Range/Units 09:48 WBC (3.8-10.6) k/uL RBC (3.80-5.40) m/uL Hgb (11.4-16.0) gm/dL Hct (34.0-46.0) % MCV (80.0-100.0) fL MCH (25.0-35.0) pg MCHC (31.0-37.0) g/dL RDW (11.5-15.5) % Plt Count (150-450) k/uL MPV Neutrophils % % Lymphocytes % % Monocytes % % Eosinophils % % Basophils % % Neutrophils # (1.3-7.7) k/uL Lymphocytes # (1.0-4.8) k/uL Monocytes # (0-1.0) k/uL Eosinophils # (0-0.7) k/uL Basophils # (0-0.2) k/uL PT (9.0-12.0) sec INR (<1.2) APTT (22.0-30.0) sec D-Dimer (<0.60) mg/L FEU Sodium (137-145) mmol/L Potassium (3.5-5.1) mmol/L Chloride (98-107) mmol/L Carbon Dioxide (22-30) mmol/L Anion Gap mmol/L BUN (7-17) mg/dL Creatinine (0.52-1.04) mg/dL Est GFR (CKD-EPI)AfAm (>60 ml/min/1.73 sqM) Est GFR (CKD-EPI)NonAf (>60 ml/min/1.73 sqM) Glucose (74-99) mg/dL Calcium (8.4-10.2) mg/dL Total Bilirubin (0.2-1.3) mg/dL AST (14-36) U/L ALT (4-34) U/L Alkaline Phosphatase (38-126) U/L Troponin I <0.012 (0.000-0.034) ng/mL Total Protein (6.3-8.2) g/dL Albumin (3.5-5.0) g/dL Disposition Clinical Impression: Anxiety Disposition: HOME SELF-CARE Condition: Stable Instructions (If sedation given, give patient instructions): Anxiety (ED) Additional Instructions: Please return to the Emergency Department if symptoms worsen or any other concerns. Is patient prescribed a controlled substance at d/c from ED?: No Referrals: Yvon Allen MD [Primary Care Provider] - 1-2 days
[2021-04-01 10:30] LABS: ALT 19 U/L (4-34); AST 26 U/L (14-36); African American GFR (CKD) >90 (>60 ml/min/1.73 sqM); Albumin 4.9 g/dL (3.5-5.0); Alkaline Phosphatase 73 U/L (38-126); Anion Gap 15 mmol/L; Blood Urea Nitrogen 11 mg/dL (7-17); Calcium 10.4 mg/dL (8.4-10.2); Carbon Dioxide 17 mmol/L (22-30); Chloride 106 mmol/L (98-107); Glucose 109 mg/dL (74-99); Non-African American GFR(CKD) >90 (>60 ml/min/1.73 sqM); Potassium 3.6 mmol/L (3.5-5.1); Sodium 138 mmol/L (137-145); Total Bilirubin 0.8 mg/dL (0.2-1.3); Total Protein 7.7 g/dL (6.3-8.2)
[2021-04-01 10:37] LABS: D-Dimer <0.17 mg/L FEU (<0.60); INR 0.9 (<1.2); Partial Thromboplastin Time 20.5 sec (22.0-30.0); Prothrombin Time 10.1 sec (9.0-12.0)
--- NOTE | 2021-04-01 10:47 | XR ---
EXAMINATION TYPE: XR chest 2V DATE OF EXAM: 04/01/2021 COMPARISON: Chest x-ray 02/16/2021 HISTORY: Difficult breathing TECHNIQUE: Frontal and lateral views of the chest are obtained. FINDINGS: There is no focal air space opacity, pleural effusion, or pneumothorax seen. The cardiac silhouette size is within normal limits. There are overlying leads. The osseous structures are inta ct, there is a slight spinal curvature. IMPRESSION: No acute cardiopulmonary process. There is resolution of the previously identified abnor mal densities within the lungs.
[2021-04-01 11:18] VITALS: BP 145/91; PULSE 93; RESP 16
== END 2021-04-01 12:12 | disposition home or self-care (01) ==
LOC: EC 09:05
DX: F41.9 Anxiety disorder, unspecified (principal); F17.200 Nicotine dependence, unspecified, uncomplicated
CPT/HCPCS: 36415; 93005; 85379; 80053; 84484; 85025; 85610; 85730; 71046; 99285; 96374; J2060

== ENCOUNTER 2021-07-28 21:30 | Emergency (ER) | payer OTHER ==
[2021-07-28 21:37] VITALS: TEMP 98.3
--- NOTE | 2021-07-28 21:48 | ED ---
General Adult HPI - General Chief complaint: Extremity Problem,Nontraumatic Stated complaint: L Arm Numbness Time Seen by Provider: 07/28/21 21:34 Source: patient, EMS Mode of arrival: EMS Limitations: no limitations - History of Present Illness Initial comments: Dictation was produced using [employer] dictation software. please excuse any grammatical, word or spelling errors. Chief Complaint: 25-year-old female presents with paresthesias of the left arm History of Present Illness: 25-year-old female she is states that she's been und er a lot of stress today. 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 She states that today she was in her office when she started to feel stressed out. She states that shortly after she began having an ache in her left shoulder. Shortly after she had some paresthesias from her mid forearm down to her fingers. Patient does not have any medical problems. De nies any dysarthria, confusion. EMS was called patient is brought to the emergency room. Patient denies . She has no pain complaints currently. The ROS documented in this emergency department record has been reviewed and confirmed by me. Those systems with pertinent positive or negative responses have been documented in the HPI. All other systems are other negative and/or noncontributory. PHYSICAL EXAM: General Impression: Alert and oriented x3, not in acute distress HEENT: Normocephalic atraumatic, extra-ocular movements intact, pupils equal and reactive to light bilaterally, mucous membranes moist. Cardiovascular: Heart regular rate and rhythm Chest: Able to complete full sentences, no retractions, no tachypnea Abdomen: abdomen soft, non-tender, non-distended, no organomegaly Musculoskeletal: Pulses present and equal in all extremities, no peripheral edema Motor: no focal deficits noted Neurological: CN II-XII grossly intact, no focal motor or sensory deficits noted Left upper extremity: Symmetrical to the right, no pain along the deep venous system, radial pulse intact. Good capillary refill. Intact sensation to light touch. No weakness compared to the right. Skin: Intact with no visualized rashes Psych: Normal affect and mood ED course: 25-year-old female presents emergency department for chief complaint of paresthesias to the left upper extremity. Doesn't follow dermatome. She has good neurovascular exam. No concerns for cerebrovascular accident given benign neuro exam. Vital signs upon arrival shows when he takes within acceptable limits. Patient states she's been under a lot of stress the last several days. CBC is unremarkable. Metabolic panel shows potassium of 3.0, rest of [place] panels unremarkable. Patient given oral potassium. Patient revisited bedside 11:20 PM found to be stable medical condition. She states her symptoms are improved. Patient is agreeable for discharge. She does have established care with [facility] care physician per she is told to increase her potassium in her diet. EKG interpretation: Ventricular rate 90, normal sinus rhythm,. Interval 176, QRS 94, QTc 442. No DC prolongation, no QTC prolongation, no ST or T-wave changes noted. . Overall, this EKG is unremarkable - Related Data Home Medications Medication Instructions Recorded Confirmed PARoxetine HCL [Paxil] 20 mg PO HS 07/28/21 07/28/21 Allergies Allergy/AdvReac Type Severity Reaction Status Date / Time Penicillins Allergy Unknown Verified 07/28/21 22:27 Childhood Review of Systems ROS Statement: Those systems with pertinent positive or pertinent negative responses have been documented in the HPI. ROS Other: All systems not noted in ROS Statement are negative. Past Medical History Past Medical History: No Reported History Additional Past Medical History / Comment(s): covid 02/13/21 History of Any Multi-Drug Resistant Organisms: None Reported Past Surgical History: No Surgical Hx Reported Past Psychological History: No Psychological Hx Reported Smoking Status: Current some day smoker Past Alcohol Use History: Occasional Past Drug Use History: Marijuana General Exam Limitations: no limitations Course Vital Signs 07/28/21 07/28/21 21:32 23:14 Temperature 98.3 F Pulse Rate 99 90 Respiratory 19 18 Rate Blood Pressure 140/102 149/96 O2 Sat by Pulse 100 98 Oximetry Medical Decision Making - Lab Data Result diagrams: 07/28/21 21:55 07/28/21 21:55 Lab Results 07/28/21 07/28/21 Range/Units 21:55 21:55 WBC 8.6 (3.8-10.6) k/uL RBC 4.83 (3.80-5.40) m/uL Hgb 14.7 (11.4-16.0) gm/dL Hct 42.3 (34.0-46.0) % MCV 87.7 (80.0-100.0) fL MCH 30.5 (25.0-35.0) pg MCHC 34.8 (31.0-37.0) g/dL RDW 13.2 (11.5-15.5) % Plt Count 291 (150-450) k/uL MPV 7.7 Neutrophils % 58 % Lymphocytes % 34 % Monocytes % 6 % Eosinophils % 1 % Basophils % 0 % Neutrophils # 4.9 (1.3-7.7) k/uL Lymphocytes # 2.9 (1.0-4.8) k/uL Monocytes # 0.5 (0-1.0) k/uL Eosinophils # 0.1 (0-0.7) k/uL Basophils # 0.0 (0-0.2) k/uL Sodium 137 (137-145) mmol/L Potassium 3.0 L (3.5-5.1) mmol/L Chloride 104 (98-107) mmol/L Carbon Dioxide 22 (22-30) mmol/L Anion Gap 11 mmol/L BUN 6 L (7-17) mg/dL Creatinine 0.68 (0.52-1.04) mg/dL Est GFR (CKD-EPI)AfAm >90 (>60 ml/min/1.73 sqM) Est GFR (CKD-EPI)NonAf >90 (>60 ml/min/1.73 sqM) Glucose 108 H (74-99) mg/dL Calcium 9.8 (8.4-10.2) mg/dL Magnesium 2.2 (1.6-2.3) mg/dL Disposition Clinical Impression: Hypokalemia Disposition: HOME SELF-CARE Condition: Good Instructions (If sedation given, give patient instructions): Hypokalemia (ED) Is patient prescribed a controlled substance at d/c from ED?: No Referrals: Yvon Allen MD [Primary Care Provider] - 1-2 days
[2021-07-28 22:15] LABS: Basophils % (A) 0 %; Eosinophils # (A) 0.1 k/uL (0-0.7); Eosinophils % (A) 1 %; HCT 42.3 % (34.0-46.0); HGB 14.7 gm/dL (11.4-16.0); Lymphocytes # (A) 2.9 k/uL (1.0-4.8); Lymphocytes % (A) 34 %; MCH 30.5 pg (25.0-35.0); MCHC 34.8 g/dL (31.0-37.0); MCV 87.7 fL (80.0-100.0); Mean Platelet Volume 7.7; Monocytes # (A) 0.5 k/uL (0-1.0); Monocytes % (A) 6 %; Neutrophils # (A) 4.9 k/uL (1.3-7.7); Neutrophils % (A) 58 %; Platelet Count 291 k/uL (150-450); RBC 4.83 m/uL (3.80-5.40); RDW 13.2 % (11.5-15.5); WBC 8.6 k/uL (3.8-10.6)
[2021-07-28 22:28] LABS: African American GFR (CKD) >90 (>60 ml/min/1.73 sqM); Anion Gap 11 mmol/L; Blood Urea Nitrogen 6 mg/dL (7-17); Calcium 9.8 mg/dL (8.4-10.2); Carbon Dioxide 22 mmol/L (22-30); Chloride 104 mmol/L (98-107); Glucose 108 mg/dL (74-99); Magnesium 2.2 mg/dL (1.6-2.3); Non-African American GFR(CKD) >90 (>60 ml/min/1.73 sqM); Sodium 137 mmol/L (137-145)
[2021-07-28] MEDS ORDERED: POTASSIUM CHLORIDE ER 20 MEQ TAB.ER PO STA (23:09)
[2021-07-28 23:16] VITALS: RESP 18
[2021-07-28 23:50] VITALS: BP 151/109; PULSE 95
== END 2021-07-28 23:50 | disposition home or self-care (01) ==
LOC: EC 21:30
DX: E87.6 Hypokalemia (principal); R20.0 Anesthesia of skin; F17.200 Nicotine dependence, unspecified, uncomplicated; Z88.0 Allergy status to penicillin; Z86.16 Personal history of COVID-19
CPT/HCPCS: 36415; 80048; 81025; 83735; 85025; 93005; 99284